=== PATIENT | female | born 1995 | race Caucasian/White ===

== ENCOUNTER 2021-12-28 14:33 | Emergency (ER) | payer SELFPAY ==
[~2021-12-28] VITALS: Ht 170.2 cm; Wt 81.6 kg
[2021-12-28 16:05] VITALS: BP 113/79
[2021-12-28] MEDS ORDERED: IBUP800T26 PO (16:41)
[2021-12-28] MEDS ORDERED: AMOX-277 PO (16:41)
[2021-12-28] MEDS ORDERED: HYDROcodone-ACET 5/325MG TAB PO ONE (16:45)
== END 2021-12-28 16:54 | disposition home or self-care (01) ==
LOC: ER 14:33
DX: S01.511A Laceration without foreign body of lip, initial encounter (principal); W54.0XXA Bitten by dog, initial encounter; Y93.89 Activity, other specified; Y92.89 Other specified places as the place of occurrence of the external cause; Y99.8 Other external cause status
CPT/HCPCS: 12011

== ENCOUNTER 2021-12-30 12:07 | Emergency (ER) | payer SELFPAY ==
[~2021-12-30] VITALS: Ht 170.2 cm; Wt 79.4 kg
[~2021-12-30 12:07] MED LIST: AMOX-277 PO; IBUP800T26 PO
[2021-12-30] MEDS ORDERED: AMOXICILLIN/CLAVUL 875 MG TAB PO ONE (16:45)
[2021-12-30 17:43] VITALS: BP 132/90
== END 2021-12-30 17:52 | disposition home or self-care (01) ==
LOC: ER 12:07
DX: S01.551D Open bite of lip, subsequent encounter (principal); X58.XXXD Exposure to other specified factors, subsequent encounter